=== PATIENT | female | born 1960 ===

== ENCOUNTER 2018-02-26 10:37 | Emergency (ER) | payer MEDICAID ==
[~2018-02-26] VITALS: Ht 154.9 cm; Wt 82.8 kg
[2018-02-26 12:03] LABS: ALBUMIN 4.1 g/dL (3.4-5.0); ANION GAP 7 mmol/L (5-15); CALCIUM 9.6 mg/dL (8.5-10.1); CHLORIDE 107 mmol/L (98-107); CREATININE 0.76 mg/dL (0.55-1.02)
[2018-02-26 13:00] LABS: BASOPHILS # (AUTO) 0.03 x10^3/uL (0-0.1); BASOPHILS % (AUTO) 1 % (0-1); EOSINOPHILS # (AUTO) 0.28 x10^3/uL (0-0.4); EOSINOPHILS % (AUTO) 5 % (1-7); LYMPHOCYTES # (AUTO) 1.87 x10^3/uL (1-3.4); LYMPHOCYTES % (AUTO) 32 % (22-44); MD NO; MEAN CORPUSCULAR HEMOGLOBIN 30.6 pg (27.0-34.8); MEAN CORPUSCULAR HGB CONC 34.2 g/dL (32.4-35.8); MEAN CORPUSCULAR VOLUME 89.5 fL (80-100); MEAN PLATELET VOLUME 8.6 fL (7.4-10.4); MONOCYTES # (AUTO) 0.57 x10^3/uL (0.2-0.8); MONOCYTES % (AUTO) 10 % (2-9); NEUTROPHILS # (AUTO) 3.19 x10^3/uL (1.8-6.8); NEUTROPHILS % (AUTO) 54 % (42-75); PLATELET COUNT 265 x10^3/uL (130-400); RED BLOOD COUNT 4.78 x10^6/uL (3.82-5.3)
[2018-02-26] MEDS ORDERED: OMNIPAQUE 350 MG/ML, 75ML BOTTLE ONE (13:33)
[2018-02-26 14:05] VITALS: BP 122/80
== END 2018-02-26 14:40 | disposition home or self-care (01) ==
LOC: ED 13:04
DX: H57.11 Ocular pain, right eye (principal)
CPT/HCPCS: 36415; 70481; 80048; 82040; 85025; 99285; Q9967